=== PATIENT | male | born 1965 | race Caucasian/White ===

== ENCOUNTER 2016-11-02 23:17 | Emergency (ER) | payer SELFPAY ==
[~2016-11-02] VITALS: Ht 188 cm; Wt 88.5 kg
[2016-11-02 23:48] VITALS: BP 115/65
== END 2016-11-03 01:15 | disposition left against medical advice (07) ==
LOC: ER 23:21
DX: Z53.21 Procedure and treatment not carried out due to patient leaving prior to being seen by health care provider (principal)
CPT/HCPCS: A4606; Z7610

== ENCOUNTER 2016-11-03 07:37 | Emergency (ER) | payer BC ==
[~2016-11-03] VITALS: Ht 185.4 cm; Wt 88.5 kg
[2016-11-03 07:46] VITALS: BP 133/71
[2016-11-03] MEDS ORDERED: IBUPROFEN 400 MG TABLET ONE (07:55)
[2016-11-03] MEDS ORDERED: IBUPROFEN 400 MG TABLET PO ONE (08:00)
== END 2016-11-03 08:32 | disposition home or self-care (01) ==
LOC: ER 07:39
DX: M54.5 Low back pain (principal); V49.40XA Driver injured in collision with unspecified motor vehicles in traffic accident, initial encounter; Y93.89 Activity, other specified; Y92.413 State road as the place of occurrence of the external cause; Y99.8 Other external cause status
CPT/HCPCS: 72100; 99284; A4606; Z7610